=== PATIENT | male | born 2000 | race African-American/Black ===

== ENCOUNTER 2025-01-18 16:49 | Emergency (ER) | payer BC, SELFPAY ==
[2025-01-18 16:56] VITALS: BP 147/80; PULSE 107; RESP 18; TEMP 36.5; O2SAT 100
[2025-01-18 17:33] VITALS: BP 145/80
--- NOTE | 2025-01-18 17:37 | ED_ITS ---
HPI - General Adult General Chief complaint: Recheck/Abnormal Lab/Rx Stated complaint: elevated blood pressure and dizziness Time Seen by Provider: 01/18/25 16:58 History of Present Illness HPI narrative: 24-year-old male presenting with concerns for high blood pressure reading while at [facility]. Patient reports the reading was around 126/80. Denies any family history of early cardiac or any cardiac history in his family. Denies chest pain/shortness of breath, fevers/chills, abdominal pain, nausea/vomiting/diarrhea, headaches. Related Data Allergies Allergy/AdvReac Type Severity Reaction Status Date / Time No Known Allergies Allergy Verified 01/18/25 16:51 Review of Systems Review of Systems: All systems reviewed & are unremarkable except as noted in HPI and below Exam Narrative: GENERAL: Mildly anxious. HEAD: Normocephalic, atraumatic. EYES: PERRLA and EOMI. ENT: Nares clear, no rhinorrhea or epistaxis. Mucous membranes moist. Oropharynx without tonsillar hypertrophy exudate or other lesions. Bilateral TMs pearly frank non-bulging NECK: Supple. No adenopathy or masses. No carotid bruits or JVD CHEST: Clear to auscultation. No respiratory distress. No wheezes rales or rhonchi HEART: Mildly tachycardic and normal rhythm. No murmur heard. Normal peripheral pulses. ABDOMEN: Soft, nontender, nondistended, normal active bowel sounds. EXTREMITIES: Normal range of motion. No edema. SKIN: Warm, dry, no rash. NEURO: No focal deficits. Alert and oriented x3. PSYCH: Normal mood and affect Course Vital Signs Vital signs: Vital Signs Temperature 97.7 F 01/18/25 16:56 Pulse Rate 107 H 01/18/25 16:56 Respiratory Rate 18 01/18/25 16:56 Blood Pressure 147/80 H 01/18/25 16:56 Pulse Oximetry 100 01/18/25 16:56 Oxygen Delivery Room Air 01/18/25 16:56 Temperature 97.7 F 01/18/25 16:56 Pulse Rate 107 H 01/18/25 16:56 Respiratory Rate 18 01/18/25 16:56 Blood Pressure 145/80 H 01/18/25 17:33 Pulse Oximetry 100 01/18/25 16:56 Oxygen Delivery Room Air 01/18/25 16:56 Medical Decision Making [facility] Narrative Medical decision making narrative: 24-year-old male presenting with concerns for high blood pressure reading while at [facility]. Patient reports the reading was around 126/80. Denies any family history of early cardiac or any cardiac history in his family. Denies chest pain/shortness of breath, fevers/chills, abdominal pain, nausea/vomiting/diarrhea, headaches. Patient is mildly tachycardic upon my initial assessment, remains otherwise asymptomatic. No signs hypertensive urgency/emergency. Elevation likely situational or due to anxiety. No acute intervention indicated. Patient's heart rate began to decrease after discussion and reassurance. Advise outpatient monitoring and follow-up with PCP. Given reasons to return. Medical Records Medical records reviewed: Yes I reviewed the external patient's medical records. Vital Signs Vital Signs: Vital Signs Temperature 97.7 F 01/18/25 16:56 Pulse Rate 107 H 01/18/25 16:56 Respiratory Rate 18 01/18/25 16:56 Blood Pressure 147/80 H 01/18/25 16:56 Pulse Oximetry 100 01/18/25 16:56 Oxygen Delivery Room Air 01/18/25 16:56 Temperature 97.7 F 01/18/25 16:56 Pulse Rate 107 H 01/18/25 16:56 Respiratory Rate 18 01/18/25 16:56 Blood Pressure 145/80 H 01/18/25 17:33 Pulse Oximetry 100 01/18/25 16:56 Oxygen Delivery Room Air 01/18/25 16:56 Discharge Plan Discharge Clinical Impression: Elevated blood pressure reading, Anxiety Patient Disposition: Home Condition: Stable Instructions: Hypertension (ED) Additional Instructions: Return to the emergency department if you experience fever, chest pain, shortness of breath, abdominal pain with nausea and vomiting, weakness, numbness/tingling, or any other symptoms that are concerning to you. Take anti- inflammatories (Aleve, Ibuprofen, Naproxen, etc) or Tylenol as needed for pain. Follow up with primary care doctor. Phone number provided. Patient Language: Qatari Follow-up/Referrals: Betty Bee DO [Physician, Family Practice] PHYSICIAN,[employer] [Primary Care Provider, Internal Medicine]
== END 2025-01-18 18:32 | disposition home or self-care (01) ==
DX: R03.0 Elevated blood-pressure reading, without diagnosis of hypertension (principal); F41.9 Anxiety disorder, unspecified
CPT/HCPCS: 82948; 99282

== ENCOUNTER 2025-01-19 19:43 | Emergency (ER) | payer BC, SELFPAY ==
--- NOTE | ~2025-01-19 | XR_ITS ---
Examination: XR chest 1V portable Clinical History: SOB Comparison: None Technique: Portable AP Findings: Heart size normal. Lungs clear. No acute bony abnormality. IMPRESSION: 1. No acute cardiopulmonary findings given portable technique. Reviewed, dictated and finalized at location R. TEACHER
--- OUTSIDE RECORDS SUMMARY | 2025-01-19 16:16 | XMS_ITS | Encounter Summary ---
Author Organization [facility] Address [address] [place] [address] Care Team Providers Care Data Specialist Name Role Phone None, Provider Primary Care Provider Unavaila ble Reason for Visit * Reason Comments Shortness Of Breath Encounter Details Date Type Department Care Team (Late st Contact Info) Description 01/19/2025 4:16 PM FIELD CASHIER - 01/19/2025 5:39 PM FIELD CASHIER Emergency [facility] [place] [address] Emily Rey, MATERIALS ENGINEERING TECHNICIAN [address] [place], [place] [address] Shortness Of Breath Discharge Disposition: Home or Self Care (Routine Discharge) Social History Tobacco Use Types Packs/Day Years Used Date Smoking Tobacco: Never Smokeless Tobacco: Never Alcohol Use Standard Drinks/Week Comments No 0 (1 standard drink = 0.6 oz pur e alcohol) Sex and Gender Information Value Date Recorded Sex Assigned at Male 01/19/2025 3:57 PM FIELD CASHIER Legal Sex Male 4:03 PM CDT Gender Identity Not on file Sexual Orientation Not on file documented as of this encounter Last Filed Vital Signs Vital Sign Reading Time Taken Comments Blood Pressure 116/77 01/19/2025 5:35 PM FIELD CASHIER Pulse 96 01/19/2025 5:35 PM FIELD CASHIER Temperature 36.7 C (98.1 F) 01/19/2025 3:57 PM FIELD CASHIER Respiratory Rate 20 01/19/2025 5:35 PM FIELD CASHIER Oxygen Saturation 100% 01/19/2025 5:35 PM FIELD CASHIER Inhaled Oxygen Concentration - - Weight 80.8 kg (178 lb 2.1 oz) 01/19/2025 3:57 P M FIELD CASHIER Height 182.9 cm (6') 01/19/2025 3:57 PM FIELD CASHIER Body Mass Index 24.16 01/19/2025 3:57 PM FIELD CASHIER documented in this encounter Functional Status * Calculated C-SSRS Risk Score (Lifetime/Recent) Answer Date of Assessment Author Status No Risk Indicated 01/19/2025 4:00 PM FIELD CASHIER Ad Brizuela RN Active * [place] Suicide Severity Rating Scale (Screener/Recent Self-Report) Question Answer Date of Assessment Author Status 1. Wish to be (Past 1 Month) No 01/19/2025 4:00 PM FIELD CASHIER Janine Brizuela RN Active 2. Non-Specific Active Suicidal Thoughts (Past 1 Month) No 01/19/2025 4:00 PM FIELD CASHIER Janine Brizuela RN Active 6. Suicidal Behavior (Lifetime) No 01/19/2025 4:00 PM FIELD CASHIER Janine Brizuela RN Active documented as of this encounter Discharge Instructions * Discharge Instructions* Emily Rey, MATERIALS ENGINEERING TECHNICIAN - 01/19/2025 5:32 PM FIELD CASHIER Emergency Departments (ED) provide medical screening exams and initial stabilizing treatment of emergency medical conditions. Medicine is an inexact science and many conditions cannot be diagnosed orcompletely treated during a single ED visit. Your treating healthcare provider(s) today feel your condition has been stabilized so further care as an outpatient is reasonable. Emergency care does notsubstitute for complete, ongoing, or follow-up care by your primary care physician or wallpaper consultant. Your medication list was reviewed prior to treatment, and at discharge, by the treating provider for the purpose of this outpatient visit only. Please review this entire medication list with your pharmacist, primary care physician, and specialist(s). It is your responsibility to share any new medication instructions you received this visit with your doctor(s). Although no medicine is without risk, your healthcare provider today feels reasonable decisions were made concerning starting new medications and stopping or changing the dosages of your usual medications until you receive follow-up care. Take medications only as directed. Many medications can cause drowsiness, especially those for pain, anxiety, muscle spasms, nausea, and allergies. DO NOT drive, drink alcohol, operate power machinery, or participate in potentially dangerous activities if taking medicines that make you tired. Chronic pain is best managed by pain specialists or primary care physicians, so narcotic refills are not routinely dispensed in the ED. DO NOT take multiple medications containing acetaminophen (Tylenol), such as many narcotic drug combinations and [id number] cold medicines. Your feedback is important to us. Please fill out the survey you will get in the mail. We need yourinput to give you the best care possible! With your feedback we??ll know where we need to focus ourefforts to provide very good service to our patients! CLARKE Taylor [employer] D CASHIER * Attachments The following attachments cannot be sent through Care Everywhere. * Chest Pain That Is Not Caused by the Heart Discharge Instructions ([place]) * Avoiding asthma and allergy triggers ([place]) * Asthma in adults ([place]) documented in this encounter Medications at Time of Discharge albuterol sulfate HFA 108 (90 Base) MCG/ACT inhaler Inhale 2 puffs into the lungs every 6 (six) hours as needed. 18 g 01/19/2025 5 predniSONE (DELTASONE) 20 MG tablet Take 2 tablets (40 mg total) by mouth daily for 5 days. 10 tablet 01/19/2025 5 ondansetron (ZOFRAN-ODT) 4 MG disintegrating tablet Take 1 tablet (4 mg total) by mouth every 8 (eight) hours as needed for Nausea. 20 tablet 09/14/2021 traMADol (ULTRAM) 50 MG tabletIndications:Ac lenny Pain < 3 Day Supply Take 1 tablet (50 mg total) by mouth every 6 (six) hours as needed for Pain. Indications: Acute Pain < 3 Day Supply 10 tablet 01/07/2022 documented as of this encounter ED Notes * Alma Rosa Putnam RN - 01/19/2025 5:39 PM CST Provider discussed today's findings with the patient/family. The patient has been given informationregarding their treatment, follow up and concerning symptoms for which they should seek urgent or emergent attention. I have expressed the the importance of seeking attention should there be any new,or worsening symptoms or persistence of their condition. Patient verbalized understanding of the discharge instructions. D CASHIER * Emily Rey APRN - 01/19/2025 3:59 PM CST ED NOTE Chief Complaint Chief Complaint Patient presents with Shortness Of Breath History of Present Illness Patient arrives to emergency room today for evaluation of shortness of breath and left-sided pain with respirations. Says that he is concerned he may have pneumonia. Reports some fevers and chills and bodyaches. Denies nausea, vomiting, diarrhea, abdominal pain, chest pain, difficulty breathing. Denies any significant medical history. Denies tobacco use, hormone therapy, or long trips. Denies anyknown ill contacts. Medical History ALLERGIES: Review of patient's allergies indicates: No Known Allergies MEDICATIONS: Prior to Admission medications Medication Sig Start Date End Date Taking? Authorizing Provider albuterol sulfate HFA 108 (90 Base) MCG/ACT inhaler Inhale 2 puffs into the lungs every 6 (six) hours as needed. 01/19/25 01/26/25 Yes Emily Rey APRN predniSONE (DELTASONE) 20 MG tablet Take 2 tablets (40 mg total) by mouth daily for 5 days. 01/19/25 01/24/25 Yes Emily Rey APRN ondansetron (ZOFRAN-ODT) 4 MG disintegrating tablet Take 1 tablet (4 mg total) by mouth every 8 (eight) hours as needed for Nausea. 09/14/21 Josue Duke, traMADol (ULTRAM) 50 MG tablet Take 1 tablet (50 mg total) by mouth every 6 (six) hours as needed for Pain. Indications: Acute Pain < 3 Day Supply 01/07/22 MARYAN Mast PAST MEDICAL HISTORY: History reviewed. No pertinent past medical history. PAST SURGICAL HISTORY: History reviewed. No pertinent surgical history. FAMILY HISTORY: Family History Problem Relation Name Age of Onset No Known Problems Mother No Known Problems Father SOCIAL HISTORY: History Smoking Status Never Smokeless Tobacco Never Social History Substance and Sexual Activity Alcohol Use No Social History Substance and Sexual Activity Drug Use No Physical Exam Filed Vitals: 01/19/25 1557 BP: (!) 163/69 Pulse: (!) 110 Resp: 18 Temp: 98.1 ??F (36.7 ??C) TempSrc: Temporal SpO2: 99% Weight: 80.8 kg (178 lb 2.1 oz) Height: 1.829 m (6') Physical Exam Vitals and nursing note reviewed. Constitutional: General: He is not in acute distress. Appearance: Normal appearance. He is well-developed. He is not ill-appearing or toxic-appearing. Comments: Nontoxic appearing HENT: Head: Normocephalic and atraumatic. Right Ear: Tympanic membrane, ear canal and external ear normal. Left Ear: Tympanic membrane, ear canal and external ear normal. Nose: Congestion and rhinorrhea present. Mouth/Throat: Mouth: Mucous membranes are moist. Pharynx: Oropharynx is clear. No oropharyngeal exudate or posterior oropharyngeal erythema. Eyes: Conjunctiva/sclera: Conjunctivae normal. Cardiovascular: Rate and Rhythm: Normal rate and regular rhythm. Pulses: Normal pulses. Heart sounds: Normal heart sounds. Pulmonary: Effort: Pulmonary effort is normal. No respiratory distress. Breath sounds: Normal breath sounds. No stridor. No wheezing, rhonchi or rales. Chest: Chest wall: No tenderness. Abdominal: General: Bowel sounds are normal. There is no distension. Palpations: Abdomen is soft. Tenderness: There is no abdominal tenderness. There is no guarding. Musculoskeletal: General: Normal range of motion. Cervical back: Normal range of motion and neck supple. No rigidity. Lymphadenopathy: Cervical: No cervical adenopathy. Skin: General: Skin is warm and dry. Capillary Refill: Capillary refill takes less than 2 seconds. Neurological: General: No focal deficit present. Mental Status: He is alert and oriented to person, place, and time. Psychiatric: Mood and Affect: Mood normal. Behavior: Behavior normal. Diagnostic Studies / Procedures ELECTROCARDIOGRAMS: Results for orders placed or performed during the hospital encounter of 01/19/25 ECG 12 lead Result Value Ref Range ECG QT 316 ECG QTC [address] [facility] [address] Hernándezkenneth [address] Test Date: 2025-01-19 Pat Name: HEBER LEWIS Department: 41 Room: [place] Gender: Male Banana Loader: [id number] : 2000 Requested By: EMILY REY Order Number: [id number] Reading MD: Measurements Intervals [place] Rate: 108 P: 86 [place]: 159 QRS: 86 QRSD: 88 T: 56 QT: 316 QTc: 424 Interpretive Statements SINUS TACHYCARDIA POSSIBLE RIGHT ATRIAL ENLARGEMENT [0.25mV P-WAVE] POSSIBLE LEFT ATRIAL ENLARGEMENT [-0.1mV P-WAVE IN V1/V2] NONSPECIFIC T-WAVE ABNORMALITY ABNORMAL RHYTHM ECG No previous ECG available for comparison LABORATORY STUDIES: Results for orders placed or performed during the hospital encounter of 01/19/25 CBC W/DIFF AUTOMATED Result Value Ref Range WBC 5.35 4.5 - 11.0 x10'3/uL RBC 4.86 4.70 - 6.10 x10'6/uL HGB 14.5 14.0 - 18.0 G/DL HCT 40.2 (L) 43.0 - 54.0 % MCV 82.7 80.0 - 94.0 FL MCH 29.8 27.0 - 31.0 PG MCHC 36.1 (H) 32.0 - 36.0 G/DL RDW 12.4 11.5 - 14.5 % PLT 328 130 - 400 x10'3/uL MPV 9.6 9.3 - 12.2 FL DIFFERENTIAL TYPE MANUAL DIFFERENTIAL SEG NEUTROPHILS 55 % LYMPHOCYTES 37 % MONOCYTES 4 % EOSINOPHILS 2 % BASOPHILS 2 % ABS. NEUTROPHILS 2.94 1.80 - 7.70 x10'3/uL ABS. LYMPHOCYTES 1.98 1.00 - 4.80 x10'3/uL ABS. MONOCYTES 0.21 (L) 0.30 - 0.82 x10'3/uL ABS. EOSINOPHILS 0.11 0.04 - 0.54 x10'3/uL ABS. BASOPHILS 0.11 (H) 0.01 - 0.08 x10'3/uL RBC MORPHOLOGY RBC MORPHOLOGY APPEARS NORMAL. SLIDE REVIEWED. PLT EST. ADEQUATE BASIC METABOLIC PANEL Result Value Ref Range GLUCOSE 89 70 - 99 MG/DL BUN 8 7 - 18 MG/DL CREATININE S/P/B 0.92 0.7 - 1.3 MG/DL SODIUM S/P/B 138 136 - 145 MMOL/L POTASSIUM S/P/B 3.7 3.5 - 5.1 MMOL/L CHLORIDE S/P/B 105 97 - 115 MMOL/L CO2 19.7 (L) 21 - 32 MMOL/L CALCIUM S/P/B 10.4 (H) 8.5 - 10.1 MG/DL ANION GAP 13.3 (H) 2 - 10 MMOL/L BUN CREATININE RATIO 8.7 6 - 26 GFR ESTIMATE >90 >90 ML/MIN/1.73 M2 TROPONIN, QUANT Result Value Ref Range TROPONIN I HIGH SENSITIVITY 27 <79 ng/L D-DIMER, QUANTITATIVE Result Value Ref Range D-DIMER 392 0 - 500 ng[FEU]/mL ECG 12 lead Result Value Ref Range ECG QT 316 ECG QTC 424 RESPIRATORY PCR PNL LIMITED (FLU A/FLU B/RSV/COVID) Specimen: NASOPHARYNX; SWAB Result Value Ref Range SPEC DESCRIPTION NASOPHARYNGEAL SWAB CORONAVIRUS SARS COV 2 PCR (RESP) NEGATIVE NEGATIVE INFLUENZA A PCR (RESP) NEGATIVE NEGATIVE INFLUENZA B PCR (RESP) NEGATIVE NEGATIVE RSV PCR (RESP) NEGATIVE NEGATIVE IMAGING STUDIES XR CHEST PA+LAT Preliminary Result by User, [id number] (01/19 1700) [address] [address] EXAMINATION: PA AND LATERAL CHEST Exam date/time: 01/19/2025 4:29 PM Reason For Exam: Shortness of breath Comparison: Chest x-ray 05/31/2017 Technique: PA and lateral views of the chest were obtained. Findings: The cardiomediastinal silhouette is within normal limits. Pulmonary vasculature is normal. No pulmonary consolidation, pleural effusion or pneumothorax. =====IMPRESSION:===== No acute cardiopulmonary finding. Preliminary: Paty Gamez, 01/19/2025 5:00 PM ED Course / Medical Decision Making MDM Number of Diagnoses or Management Options Acute cough Chest pain on breathing Mild intermittent reactive airway disease with acute exacerbation (HHS/HCC) Diagnosis management comments: Based on assessment and history and patient most suspicious for a viral illness. However, with his complaints of chest pain we will also to exclude ACS through laboratory testing and chest x-ray. Patient also has a concern for pneumonia which will be excluded with chest x-ray and laboratory testing. Will test patient for respiratory viruses. Patient is unable to PERC out due to heart rate, but would like additional reassurance and will perform D-dimer for evaluation of pulmonary embolus given patient's vague response to symptoms during questioning. Without any prior history lower suspicion for an exacerbation of underlying condition. However, if patient does not see a primary doctor on regular basis hemodynamically that he has these conditions. Reassuring diagnostic evaluation today. With no signs of pulmonary embolus, pneumonia, severe infection, viral illness, metabolic derangement, hypoxia. Based on his negative workup still suspect may be an underlying respiratory condition that is exacerbated and will likely cover with steroids and albuterol inhaler and encourage patient for follow-up. Patient was involved in shared decision making. And agreeable to this plan. Verbalized understanding of discharge instructions also verbalized understanding of testing that was performed today. Patient is agreeable to returning to emergency room if his condition worsens at all. Also agreeable to establishing with a primary care provider for further evaluation. Respirations easy skin within normal limits patient ambulatory steady gait and stable for discharge. Amount and/or Complexity of Data Reviewed Clinical lab tests: reviewed Tests in the radiology section of CPT??: reviewed Tests in the medicine section of CPT??: reviewed ED Course as of 01/19/25 1739 Sat Jan 19, 20251713 D-DIMER: 392 [DC] 1714 XR CHEST PA+LAT Per rad- =====IMPRESSION:===== No acute cardiopulmonary finding. [DC] 1714 CBC W/DIFF AUTOMATED(!) Relatively normal CBC no signs of severe infection or anemia. [DC] 1715 RESPIRATORY PCR PNL LIMITED (FLU A/FLU B/RSV/COVID) Negative for flu, RSV, COVID [DC] ED Course User Index [DC] Emily Rey APRN Medications - No data to display Clinical Impression Mild intermittent reactive airway disease with acute exacerbation (HHS/HCC) (Primary) Acute cough Chest pain on breathing Current Discharge Medication List START taking these medications Details albuterol sulfate HFA 108 (90 Base) MCG/ACT inhaler Inhale 2 puffs into the lungs every 6 (six) hours as needed. Qty: 18 g, Refills: 0 Class: Eprescribe [id number] [address] [facility] (Ph #: [phone]) predniSONE (DELTASONE) 20 MG tablet Take 2 tablets (40 mg total) by mouth daily for 5 days. Qty: 10 tablet, Refills: 0 Class: Eprescribe [id number] [place], [place] - [address] [facility] (Ph #: [phone]) Disposition: Discharge Follow-Up: [address] [facility], [address] Call Contact the number above to schedule an appointment to establish care with a primary care provider EMILY REY APRN 01/19/2025 Emily Rey APRN 01/19/25 173 Emily Rey APRN 01/19/25 1732 Cosigned by Tyrone Zamora MD at 01/19/2025 6:21 PM FIELD CASHIER D CASHIER D CASHIER D CASHIER * Janine Brizuela RN - 01/19/2025 3:58 PM CSTSummary: TRIAGE Pt presents to ED from home for SOB x 1 week. Pt reports difficulty taking a deep breath, along with pain in left rib cage area. Pt concerned he may have pneumonia. A&Ox4. D CASHIER D CASHIER D CASHIER * Nurse Neema Geomagnetist I - 01/19/2025 3:54 PM CST Patient in rest room at this time. D CASHIER documented in this encounter Plan of Treatment Pending Results Name Type Priority Associated Diagnoses Date /Time ECG 12 lead EKG-NonRad Routine 01/19/2025 4: 30 PM FIELD CASHIER XR CHEST PA+LAT Imaging STAT 4:39 PM FIELD CASHIER documented as of this encounter Procedures Procedure Name Priority Date/Time Associated Diagnosis Comments XR CHEST PA+LAT STAT 01/19/2025 4:39 PM FIELD CASHIER Procedure Note - Lisa Santiago MD / Paty Gamez MD - 01/19/2025 4:39 PM CSTThis note is in progress. [address] [address] EXAMINATION: PA AND LATERAL CHEST Exam date/time: 01/19/2025 4:29 PM Reason For Exam: Shortness of breath Comparison: Chest x-ray 05/31/2017 Technique: PA and lateral views of the chest were obtained. Findings: The cardiomediastinal silhouette is within normal limits.Pulmonary vasculature is normal. No pulmonary consolidation, pleuraleffusion or pneumothorax. =====IMPRESSION:===== No acute cardiopulmonary finding. Preliminary: Paty Gamez, DO01/19/2025 5:00 PM ECG 12-LEAD Routine 01/19/2025 4:30 PM FIELD CASHIER Procedure Note - 01/19/2025 4:30 PM CSTThis note is in progress. [address] Test Date: 2025-01-19 Pat Name: HEBER LEWIS Department: 41 Room: [place] Gender: Male Banana Loader: [id number] : 2000 Requested By: EMILY REY Order Number: [id number] Reading MD: Measurements Intervals [place] Rate: 108 P: 86 [place]: 159 QRS: 86 QRSD: 88 T: 56 QT: 316 QTc: 424 Interpretive Statements SINUS TACHYCARDIA POSSIBLE RIGHT ATRIAL ENLARGEMENT [0.25mV P-WAVE] POSSIBLE LEFT ATRIAL ENLARGEMENT [-0.1mV P-WAVE IN V1/V2] NONSPECIFIC T-WAVE ABNORMALITY ABNORMAL RHYTHM ECG No previous ECG available for comparison TROPONIN, QUANT STAT 01/19/2025 4:25 PM FIELD CASHIER D-DIMER, QUANTITATIVE STAT 01/19/2025 4:25 PM FIELD CASHIER CBC W/DIFF STAT 01/19/2025 4:25 PM FIELD CASHIER BASIC METABOLIC PANEL STAT 01/19/2025 4:25 PM FIELD CASHIER RESPIRATORY PCR PNL LIMITED STAT 01/19/2025 4:25 PM FIELD CASHIER documented in this encounter Results * D-DIMER, QUANTITATIVE (01/19/2025 4:25 PM FIELD CASHIER) [facility] D-DIMER 392 0 - 500 ng{FEU}/mL 01/19/2025 5:09 PM FIELD CASHIER [facility] Comment: D-Dimer values less than or equal to 500 ng/mL FEU have a negative predictive value of >95% for exclusion of deep vein thrombosis and pulmonary embolism. In patients over 50 (who tend to have higher normal baseline D-Dimer values), recent studies suggest age-adjusted D-Dimer cutoff values (calculated as: age [years] x 10 ng/mL) result in equivalent outcomes and no additional false negative findings. BLOOD VENOUS BLOOD SPECIMEN / Unknown 01/19/2025 4:25 PM FIELD CASHIER Emily Rey APRN LABORATORY Final Result [facility] [address] [place] [address], [place] [phone] * TROPONIN, QUANT (01/19/2025 4:25 PM FIELD CASHIER) [facility] TROPONIN I HIGH SENSITIVITY 27 <79 ng/L 01/19/2025 4:57 PM FIELD CASHIER [facility] Comment: HIGH DOSES OF BIOTIN, TROPONIN-SPECIFIC AUTOANTIBODIES, AND ANTIBODY THERAPY CONTAINING HAMA MAY INTERFERE WITH THIS TEST RESULT. CORRELATION TO CLINICAL HISTORY AND PRESENTATION RECOMMENDED. BLOOD VENOUS BLOOD SPECIMEN / Unknown 01/19/2025 4:25 PM FIELD CASHIER Emily Rey APRN LABORATORY Final Result [facility] [address] [place] [address], * (ABNORMAL) BASIC METABOLIC PANEL (01/19/2025 4:25 PM FIELD CASHIER) GLUCOSE 89 70 - 99 MG/DL 01/19/2025 4:57 PM FIELD CASHIER [facility] BUN 8 7 - 18 MG/DL 01/19/2025 4:57 PM FIELD CASHIER [facility] CREATININE S/P/B 0.92 0.7 - 1.3 MG/DL 01/19/2025 4:57 PM FIELD CASHIER [facility] SODIUM S/P/B 138 136 - 145 MMOL/L 01/19/2025 4:57 PM FIELD CASHIER [facility] POTASSIUM S/P/B 3.7 3.5 - 5.1 MMOL/L 01/19/2025 4:57 PM FIELD CASHIER [facility] CHLORIDE S/P/B 105 97 - 115 MMOL/L 01/19/2025 4:57 PM FIELD CASHIER [facility] CO2 19.7(L) 21 - 32 MMOL/L 01/19/2025 4:57 PM FIELD CASHIER [facility] CALCIUM S/P/B 10.4(H) 8.5 - 10.1 MG/DL 01/19/2025 4:57 PM FIELD CASHIER [facility] ANION GAP 13.3(H) 2 - 10 MMOL/L 01/19/2025 4:57 PM FIELD CASHIER [facility] BUN CREATININE RATIO 8.7 6 - 26 01/19/2025 4:57 PM FIELD CASHIER [facility] GFR ESTIMATE >90 >90 ML/MIN/1.7 3 M2 01/19/2025 4:57 PM FIELD CASHIER [facility] Comment: NOTE: eGFR is not calculated for patients <18 years of age or gender unknown. This is an estimated GFR calculation using the new CKD EPI creatinine equation without race and so does not require a correction factor for race. This estimated GFR should not be used for calculating drug doses. BLOOD VENOUS BLOOD SPECIMEN / Unknown 01/19/2025 4:25 PM FIELD CASHIER Emily Rey APRN LABORATORY Final Result [facility] [address] [place] [address], * (ABNORMAL) CBC W/DIFF AUTOMATED (01/19/2025 4:25 PM FIELD CASHIER) WBC 5.35 4.5 - 11.0 x10'3/uL 01/19/2025 4:42 PM FIELD CASHIER [facility] RBC 4.86 4.70 - 6.10 x10'6/uL 01/19/2025 4:42 PM [facility] HGB 14.5 14.0 - 18.0 G/DL 01/19/2025 4:42 PM FIELD CASHIER [facility] HCT 40.2(L) 43.0 - 54.0 % 01/19/2025 4:42 PM FIELD CASHIER [facility] MCV 82.7 80.0 - 94.0 FL 01/19/2025 4:42 PM [facility] MCH 29.8 27.0 - 31.0 PG 01/19/2025 4:42 PM FIELD CASHIER [facility] MCHC 36.1(H) 32.0 - 36.0 G/DL 01/19/2025 4:42 PM [facility] RDW 12.4 11.5 - 14.5 % 01/19/2025 4:42 PM [facility] PLT 328 130 - 400 x10'3/uL 01/19/2025 4:42 PM [facility] MPV 9.6 9.3 - 12.2 FL 01/19/2025 4:42 PM [facility] DIFFERENTIAL TYPE MANUAL DIFFERENTIAL 01/19/2025 5:09 PM [facility] SEG NEUTROPHILS 55 % 5:09 PM [facility] LYMPHOCYTES 37 % 01/19/2025 5:09 PM [facility] MONOCYTES 4 % 01/19/2025 5:09 PM [facility] EOSINOPHILS 2 % 01/19/2025 5:09 PM [facility] BASOPHILS 2 % 01/19/2025 5:09 PM [facility] ABS. NEUTROPHILS 2.94 1.80 - 7.70 x10'3/uL 01/19/2025 5:09 PM [facility] ABS. LYMPHOCYTES 1.98 1.00 - 4.80 x10'3/uL 01/19/2025 5:09 PM [facility] ABS. MONOCYTES 0.21(L) 0.30 - 0.82 x10'3/uL 01/19/2025 5:09 PM [facility] ABS. EOSINOPHILS 0.11 0.04 - 0.54 x10'3/uL 01/19/2025 5:09 PM [facility] ABS. BASOPHILS 0.11(H) 0.01 - 0.08 x10'3/uL 01/19/2025 5:09 PM FIELD CASHIER [facility] RBC MORPHOLOGY RBC MORPHOLOGY APPEARS NORMAL. SLIDE REVIEWED. 01/19/2025 5:09 PM FIELD CASHIER [facility] PLT EST. ADEQUATE 01/19/2025 5:09 PM FIELD CASHIER [facility] BLOOD VENOUS BLOOD SPECIMEN / Unknown 01/19/2025 4:25 PM FIELD CASHIER Emily Rey APRN LABORATORY Final Result [facility] [address] [place] [address], [place] [phone] * RESPIRATORY PCR PNL LIMITED (FLU A/FLU B/RSV/COVID) (01/19/2025 4:25 PM FIELD CASHIER) SPEC DESCRIPTION NASOPHARYNGEAL SWAB 01/19/2025 4:24 PM FIELD CASHIER [facility] CORONAVIRUS SARS COV 2 PCR (RESP) NEGATIVE NEGATIVE 01/19/2025 5:15 PM FIELD CASHIER [facility] INFLUENZA A PCR (RESP) NEGATIVE NEGATIVE 01/19/2025 5:15 PM FIELD CASHIER [facility] INFLUENZA B PCR (RESP) NEGATIVE NEGATIVE 01/19/2025 5:15 PM FIELD CASHIER [facility] RSV PCR (RESP) NEGATIVE NEGATIVE 01/19/2025 5:15 PM FIELD CASHIER [facility] SWAB NASOPHARYNGEAL STRUCTURE / Unknown 01/19/2025 4:25 PM FIELD CASHIER Emily Rey APRN MICROBIOLOGY - GENERAL ORDER RAMON Final Result [facility] [address] [place] [address], [place] [phone] documented in this encounter Visit Diagnoses Diagnosis Mild intermittent reactive airway disease with acute exacerbation (HHS/HCC)- Primary Acute cough Chest pain on breathing Painful respiration documented in this encounter Additional Health Concerns Infection Onset Date Last Indicated Resolved Time Respiratory Rule Out 01/19/2025 01/19/2025 025 5:15 PM FIELD CASHIER documented as of this encounter Care Teams Data Specialist Relationship Specialty Start Date End Date None, Provider, PCP - General 08/26/21 documented as of this encounter
[2025-01-19 19:46] VITALS: BP 149/76; PULSE 92; RESP 20; TEMP 36.3; O2SAT 100
--- OUTSIDE RECORDS SUMMARY | 2025-01-19 19:46 | XMS_ITS | Encounter Summary ---
Author Organization [facility] Address [address] [place] [address] Care Team Providers Care Costume Director Name Role Phone None, Provider Primary Care Provider Anais arteaga Encounter Details Date Type Department Care Team (Latest Contact Info) Description 01/19/2025 Travel Social History Tobacco Use Types Packs/Day Years Used Date Smoking Tobacco: Never Smokeless Tobacco: Never Alcohol Use Standard Drinks/Week Comments No 0 (1 standard drink = 0.6 oz pur e alcohol) Sex and Gender Information Value Date Recorded Sex Assigned at Male 01/19/2025 3:57 PM SERVICE MECHANIC Legal Sex Male 4:03 PM CDT Gender Identity Not on file Sexual Orientation Not on file documented as of this encounter Functional Status * Calculated C-SSRS Risk Score (Lifetime/Recent) Answer Date of Assessment Author Status No Risk Indicated 01/19/2025 4:00 PM Ad Mckenzie RN Active * Mitchell Suicide Severity Rating Scale (Screener/Recent Self-Report) Question Answer Date of Assessment Author Status 1. Wish to be (Past 1 Month) No 01/19/2025 4:00 PM Janine Mckenzie RN Active 2. Non-Specific Active Suicidal Thoughts (Past 1 Month) No 01/19/2025 4:00 PM Janine Mckenzie RN Active 6. Suicidal Behavior (Lifetime) No 01/19/2025 4:00 PM Janine Mckenzie RN Active documented as of this encounter Plan of Treatment Not on file documented as of this encounter Visit Diagnoses Not on filedocumented in this encounter Additional Health Concerns Infection Onset Date Last Indicated Resolved Time Respiratory Rule Out 01/19/2025 01/19/2025 025 5:15 PM SERVICE MECHANIC documented as of this encounter Care Teams Costume Director Relationship Specialty Start Date End Date None, Provider, PCP - General 08/26/21 documented as of this encounter
--- OUTSIDE RECORDS SUMMARY | 2025-01-19 19:46 | XMS_ITS | Clinical Summary ---
Author Organization [facility] Address [address] [place] [address] Care Team Providers Care Environmental Service Aide Name Role Phone None, Provider MD Primary Care Provider Unavaila ble Allergies No known active allergies Medications ondansetron (ZOFRAN-ODT) 4 MG disintegrating tablet Take 1 tablet (4 mg total) by mouth every 8 (eight) hours as needed for Nausea. 20 tablet 2 Active traMADol (ULTRAM) 50 MG tabletIndications:A cute Pain < 3 Day Supply Take 1 tablet (50 mg total) by mouth every 6 (six) hours as needed for Pain. Indications: Acute Pain < 3 Day Supply 10 tablet 2 Active predniSONE (DELTASONE) 20 MG tablet Take 2 tablets (40 mg total) by mouth daily for 5 days. 10 tablet 5 01/25/20 25 Active albuterol sulfate HFA 108 (90 Base) MCG/ACT inhaler Inhale 2 puffs into the lungs every 6 (six) hours as needed. 18 g 5 01/27/20 25 Active Active Problems No known active problems Encounters Date Type Department Care Team Description 01/19/2025 4:16 PM BUTT WELDER - 01/19/2025 5:39 PM BUTT WELDER Emergency [facility] [place] [address] Emily Rey APRN Shortness Of Breath Discharge Disposition: Home or Self Care (Routine Discharge) 01/19/2025 Travel from Last 3 Months Family History Medical History Relation Comments No Known Problems Father No Known Problems Mother Relation Status Comments Father Alive Mother Alive Social History Tobacco Use Types Packs/Day Years Used Date Smoking Tobacco: Never Smokeless Tobacco: Never Alcohol Use Standard Drinks/Week Comments No 0 (1 standard drink = 0.6 oz pur e alcohol) Sex and Gender Information Value Date Recorded Sex Assigned at Male 01/19/2025 3:57 PM BUTT WELDER Legal Sex Male 4:03 PM CDT Gender Identity Not on file Sexual Orientation Not on file Last Filed Vital Signs Vital Sign Reading Time Taken Comments Blood Pressure 116/77 01/19/2025 5:35 PM BUTT WELDER Pulse 96 01/19/2025 5:35 PM BUTT WELDER Temperature 36.7 C (98.1 F) 01/19/2025 3:57 PM BUTT WELDER Respiratory Rate 20 01/19/2025 5:35 PM BUTT WELDER Oxygen Saturation 100% 01/19/2025 5:35 PM BUTT WELDER Inhaled Oxygen Concentration - - Weight 80.8 kg (178 lb 2.1 oz) 01/19/2025 3:57 P M BUTT WELDER Height 182.9 cm (6') 01/19/2025 3:57 PM BUTT WELDER Body Mass Index 24.16 01/19/2025 3:57 PM BUTT WELDER Plan of Treatment Health Maintenance Due Date Last Done Comments Annual Physical 07/14/2002 HPV Vaccines (1 - Male 3-dos e series) 07/14/2014 Hepatitis C 07/14/2017 DTaP, Tdap and Td Vaccines ( 1 - Tdap) 07/14/2018 Hepatitis B Vaccines (1 of 3 - 19+ 3-dose series) 07/14/2018 Pneumococcal Vaccine: Pediat rics (0 to 5 Years) and At-Risk Patients (6 to 49 Years) (1 of 2 - PCV) 07/14/2018 COVID-19 Vaccine (2024-2 6 season) 2024 Influenza Adult (#1) 2024 Hepatitis A Vaccines Aged Out No long er eligible based on patient's age to complete this topic Meningococcal B Vaccine Aged Out No l onger eligible based on patient's age to complete this topic Meningococcal Vaccine Aged Out No zuleyma shira eligible based on patient's age to complete this topic RSV Immunizations Under 20 Months Aged Out No longer eligible based on patient's age to complete this topic Procedures Procedure Name Priority Date/Time Associated Diagnosis Comments XR CHEST PA+LAT STAT 01/19/2025 4:39 PM BUTT WELDER Procedure Note - Lisa Santiago MD / Paty Gamez MD - 01/19/2025 4:39 PM CSTThis note is in progress. [address] [address] EXAMINATION: PA AND LATERAL CHEST Exam date/time: [...] PM ECG 12-LEAD Routine 01/19/2025 4:30 PM BUTT WELDER Procedure Note - 01/19/2025 4:30 PM CSTThis note is in progress. [address] Test Date: 2025-01-19 Pat Name: JOHN SAN Department: 41 Room: INMN Gender: Male Supervisor Mails: [id number] : 2000 Requested By: EMILY REY Order Number: [id number] Reading MD: Measurements Intervals Perrin Rate: 108 P: 86 MN: 159 QRS: 86 QRSD: 88 T: 56 QT: 316 QTc: 424 Interpretive Statements SINUS TACHYCARDIA POSSIBLE RIGHT ATRIAL ENLARGEMENT [0.25mV P-WAVE] POSSIBLE LEFT ATRIAL ENLARGEMENT [-0.1mV P-WAVE IN V1/V2] NONSPECIFIC T-WAVE ABNORMALITY ABNORMAL RHYTHM ECG No previous ECG available for comparison RESPIRATORY PCR PNL LIMITED STAT 01/19/2025 4:25 PM BUTT WELDER D-DIMER, QUANTITATIVE STAT 01/19/2025 4:25 PM BUTT WELDER TROPONIN, QUANT STAT 01/19/2025 4:25 PM BUTT WELDER BASIC METABOLIC PANEL STAT 01/19/2025 4:25 PM BUTT WELDER CBC W/DIFF STAT 01/19/2025 4:25 PM BUTT WELDER from Last 3 Months Results * TROPONIN, QUANT (01/19/2025 4:25 PM BUTT WELDER) Pathologist [facility] TROPONIN I HIGH SENSITIVITY 27 <79 ng/L 01/19/2025 4:57 PM BUTT WELDER [facility] Comment: HIGH DOSES OF BIOTIN, TROPONIN-SPECIFIC AUTOANTIBODIES, AND ANTIBODY THERAPY CONTAINING HAMA MAY INTERFERE WITH THIS TEST RESULT. CORRELATION TO CLINICAL HISTORY AND PRESENTATION RECOMMENDED. BLOOD VENOUS BLOOD SPECIMEN / Unknown 01/19/2025 4:25 PM BUTT WELDER Emily Rey APRN LABORATORY Final Result [facility] [address] [place] [id number], * D-DIMER, QUANTITATIVE (01/19/2025 4:25 PM BUTT WELDER) [facility] D-DIMER 392 0 - 500 ng{FEU}/mL 01/19/2025 5:09 PM BUTT WELDER [facility] Comment: D-Dimer values less than or [...] BLOOD SPECIMEN / Unknown 01/19/2025 4:25 PM BUTT WELDER Emily Rey APRN LABORATORY Final Result [facility] [address] [place] [address], * (ABNORMAL) CBC W/DIFF AUTOMATED (01/19/2025 4:25 PM BUTT WELDER) WBC 5.35 4.5 - 11.0 x10'3/uL 01/19/2025 4:42 PM BUTT WELDER [facility] RBC 4.86 4.70 - 6.10 x10'6/uL 01/19/2025 4:42 PM BUTT WELDER [facility] HGB 14.5 14.0 - 18.0 G/DL 01/19/2025 4:42 PM BUTT WELDER [facility] HCT 40.2(L) 43.0 - 54.0 % 01/19/2025 4:42 PM BUTT WELDER [facility] MCV 82.7 80.0 - 94.0 FL 01/19/2025 4:42 PM BUTT WELDER [facility] MCH 29.8 27.0 - 31.0 PG 01/19/2025 4:42 PM BUTT WELDER [facility] MCHC 36.1(H) 32.0 - 36.0 G/DL 01/19/2025 4:42 PM BUTT WELDER [facility] RDW 12.4 11.5 - 14.5 % 01/19/2025 4:42 PM BUTT WELDER [facility] PLT 328 130 - 400 x10'3/uL 01/19/2025 4:42 PM BUTT WELDER [facility] MPV 9.6 9.3 - 12.2 FL 01/19/2025 4:42 PM BUTT WELDER [facility] DIFFERENTIAL TYPE MANUAL DIFFERENTIAL 01/19/2025 5:09 PM BUTT WELDER [facility] SEG NEUTROPHILS 55 % 5:09 PM BUTT WELDER [facility] LYMPHOCYTES 37 % 01/19/2025 5:09 PM [facility] MONOCYTES 4 % 01/19/2025 5:09 PM BUTT WELDER [facility] EOSINOPHILS 2 % 01/19/2025 5:09 PM BUTT WELDER [facility] BASOPHILS 2 % 01/19/2025 5:09 PM BUTT WELDER [facility] ABS. NEUTROPHILS 2.94 1.80 - 7.70 x10'3/uL 01/19/2025 5:09 PM BUTT WELDER [facility] ABS. LYMPHOCYTES 1.98 1.00 - 4.80 x10'3/uL 01/19/2025 5:09 PM [facility] ABS. MONOCYTES 0.21(L) 0.30 - 0.82 x10'3/uL 01/19/2025 5:09 PM BUTT WELDER [facility] ABS. EOSINOPHILS 0.11 0.04 - 0.54 x10'3/uL 01/19/2025 5:09 PM [facility] ABS. BASOPHILS 0.11(H) 0.01 - 0.08 x10'3/uL 01/19/2025 5:09 PM [facility] RBC MORPHOLOGY RBC MORPHOLOGY APPEARS NORMAL. SLIDE REVIEWED. 01/19/2025 5:09 PM BUTT WELDER [facility] PLT EST. ADEQUATE 01/19/2025 5:09 PM [facility] BLOOD VENOUS BLOOD SPECIMEN / Unknown 01/19/2025 4:25 PM BUTT WELDER us Emily Rey APRN LABORATORY Final Result [facility] [address] [place] [address], * (ABNORMAL) BASIC METABOLIC PANEL (01/19/2025 4:25 PM BUTT WELDER) [facility] GLUCOSE 89 70 - 99 MG/DL 01/19/2025 4:57 PM [facility] BUN 8 7 - 18 MG/DL 01/19/2025 4:57 PM [facility] CREATININE S/P/B 0.92 0.7 - 1.3 MG/DL 01/19/2025 4:57 PM [facility] SODIUM S/P/B 138 136 - 145 MMOL/L 01/19/2025 4:57 PM [facility] POTASSIUM S/P/B 3.7 3.5 - 5.1 MMOL/L 01/19/2025 4:57 PM [facility] CHLORIDE S/P/B 105 97 - 115 MMOL/L 01/19/2025 4:57 PM [facility] CO2 19.7(L) 21 - 32 MMOL/L 01/19/2025 4:57 PM [facility] CALCIUM S/P/B 10.4(H) 8.5 - 10.1 MG/DL 01/19/2025 4:57 PM [facility] ANION GAP 13.3(H) 2 - 10 MMOL/L 01/19/2025 4:57 PM [facility] BUN CREATININE RATIO 8.7 6 - 26 01/19/2025 4:57 PM [facility] GFR ESTIMATE >90 >90 ML/MIN/1.7 3 M2 01/19/2025 4:57 PM [facility] Comment: NOTE: eGFR is not calculated for patients <18 years of age or gender unknown. This is an estimated GFR calculation using the new CKD EPI creatinine equation without race and so does not require a correction factor for race. This estimated GFR should not be used for calculating drug doses. BLOOD VENOUS BLOOD SPECIMEN / Unknown 01/19/2025 4:25 PM BUTT WELDER Emily Rey APRN LABORATORY Final Result [facility] [address] [place] [address], [place] [phone] * RESPIRATORY PCR PNL LIMITED (FLU A/FLU B/RSV/COVID) (01/19/2025 4:25 PM BUTT WELDER) SPEC DESCRIPTION NASOPHARYNGEAL SWAB 01/19/2025 4:24 PM BUTT WELDER [facility] CORONAVIRUS SARS COV 2 PCR (RESP) NEGATIVE NEGATIVE 01/19/2025 5:15 PM BUTT WELDER [facility] INFLUENZA A PCR (RESP) NEGATIVE NEGATIVE 01/19/2025 5:15 PM BUTT WELDER [facility] INFLUENZA B PCR (RESP) NEGATIVE NEGATIVE 01/19/2025 5:15 PM BUTT WELDER [facility] RSV PCR (RESP) NEGATIVE NEGATIVE 01/19/2025 5:15 PM BUTT WELDER [facility] SWAB NASOPHARYNGEAL STRUCTURE / Unknown 01/19/2025 4:25 PM BUTT WELDER Emily Rey APRN MICROBIOLOGY - GENERAL ORDER RAMON Final Result [facility] [address] [place] [address], [place] [phone] from Last 3 Months Insurance [facility] MEDICAID [employer] [place] Care Teams Environmental Service Aide Relationship Specialty Start Date End Date None, Provider, PCP - General 08/26/21
--- NOTE | 2025-01-19 20:25 | ECG_ITS ---
Test Date: 2025-01-19 20:47:51 Measurements Intervals Manquin Rate: 97 P: 85 MD: 171 QRS: 79 QRSD: 93 T: 48 QT: 338 QTc: 430 Interpretive Statements SINUS RHYTHM POSSIBLE LEFT ATRIAL ENLARGEMENT [-0.1mV P-WAVE IN V1/V2] ST ELEVATION CONSISTENT WITH INJURY, PERICARDITIS, OR EARLY REPOLARIZATION [ST ELEVATION W/O NORMALLY INFLECTED T-WAVE] No previous ECG available for comparison Electronically Signed On 01-19-2025 22:56:57 FINANCIAL REPORTING DIRECTOR by Olivia Gil M.D.
[2025-01-19 20:46] LABS: Hematocrit 39.8 % (42.0-52.0); Hemoglobin 14.2 g/dL (14.0-18.0); Immature Granulocyte Percent A 0.2 % (0-0.5); Lymphocytes Absolute Auto 1.68 K/mm3 (0.9-3.2); Mean Corpuscular HGB Conc 35.7 g/dl (32-36); Mean Corpuscular Hemoglobin 29.6 pg (26-34); Mean Corpuscular Volume 83.1 fl (80-100); Nucleated Red Blood Cells Absolute Auto 0.000 K/mm3 (0.0-0.012); Nucleated Red Blood Cells Perc 0.0 % (0.0-0.2); Platelet Count Result 321 k/mm3 (150-375); Red Blood Count 4.79 M/mm3 (4.6-6.20); White Blood Count 6.1 K/mm3 (4.5-10.0)
[2025-01-19 20:57] LABS: INR 1.2; Prothrombin Time 14.9 Seconds (11.1-14.7)
[2025-01-19 20:58] LABS: Alanine Aminotransferase 23 U/L (6-50); Albumin Level 5.3 g/dL (3.5-5.1); Alkaline Phosphatase 44 U/L (38-126); Anion Gap 16 mmol/L (4-12); Aspartate Amino Transferase 28 U/L (17-59); Bilirubin,Total 1.3 mg/dL (0.2-1.3); Blood Urea Nitrogen 8 mg/dL (9-20); Calcium 10.2 mg/dL (8.4-10.2); Carbon Dioxide 17 mmol/L (22-30); Chloride 105 mmol/L (98-107); Estimated CRCL calculation 107 ml/min; Estimated Glomerular Filt Rate > 60; Glucose 95 mg/dL (65-110); Lipase 148 U/L (23-300); Partial Thromboplastin Time 27.5 Seconds (22.3-36.8); Potassium 3.9 mmol/L (3.4-5.0); Sodium 138 mmol/L (137-145); Total Protein 9.1 g/dL (6.3-8.2)
[2025-01-19 21:08] LABS: Troponin I < 0.012 ng/mL (0.000-0.034)
--- NOTE | 2025-01-19 21:20 | ED.ANXIETY ---
HPI - Anxiety General Chief Complaint: Anxiety Stated Complaint: anxiety Time Seen by Provider: 01/19/25 20:24 History of Present Illness HPI narrative: 24-year-old otherwise healthy male presenting to the emergency department for 3rd evaluation in the emergency department in the last 2 days. Patient was here yesterday for suspected anxiety and was discharged home without workup. He went to another hospital prior to arrival today and had blood work EKG and chest x-ray and was told that he might just be anxious. He was discharged from there and drove himself to this ER. Patient states he was having whole body numbness and tingling in sensations even the face. He was having deep breathing and rapid breathing. No pain anywhere. No chest pain or shortness of breath. States he is a nonchalant person and not anxious however patient appears visibly anxious and having deep breathing. has not tried any medications for his symptoms. Does not see a primary doctor. Has no health concerns previously. No nausea, vomiting, chest pain, back pain, fever, chills. No cough. He states he previously had pneumonia and wants to make sure does not have a pneumonia in his left lung. Related Data Allergies Allergy/AdvReac Type Severity Reaction Status Date / Time No Known Allergies Allergy Verified 01/19/25 19:44 Review of Systems Review of Systems: as reviewed above in [facility] Social History Social History Substance use type: does not use Exam Narrative: GENERAL: anxious appearing but not any acute distress. Awake and answering all my questions appropriately. HEAD: [Normocephalic, atraumatic.] EYES: [PERRLA and EOMI.] ENT: Nares clear, no rhinorrhea or epistaxis. Mucous membranes moist. NECK: Supple. CHEST: [Clear to auscultation. No respiratory distress.] HEART: [Regular rate and rhythm]. No murmur heard. [Normal peripheral pulses.] ABDOMEN: [Soft, nondistended], [nontender], [No rigidity or guarding] EXTREMITIES: Normal range of motion. [No edema.] SKIN: Warm, dry, no rash. NEURO: [No focal deficits]. Alert and oriented [x3.] PSYCH: Anxious appearing mood and affect. No SI/HI. Course Vital Signs Vital signs: Vital Signs Temperature 36.3 C L 01/19/25 19:46 Pulse Rate 92 01/19/25 19:46 Respiratory Rate 20 01/19/25 19:46 Blood Pressure 149/76 H 01/19/25 19:46 Pulse Oximetry 100 01/19/25 19:46 Temperature 36.7 C 01/19/25 22:58 Pulse Rate 97 01/19/25 22:58 Respiratory Rate 20 01/19/25 22:58 Blood Pressure 131/77 01/19/25 22:58 Pulse Oximetry 100 01/19/25 22:58 MDM - Anxiety MDM Narrative Medical decision making narrative: 24-year-old otherwise healthy male presenting to the emergency department for 3rd evaluation in the emergency department in the last 2 days. Patient was here yesterday for suspected anxiety and was discharged home without workup. He went to another hospital prior to arrival today and had blood work EKG and chest x-ray and was told that he might just be anxious. He was discharged from there and drove himself to this ER. Patient states he was having whole body numbness and tingling in sensations even the face. He was having deep breathing and rapid breathing. No pain anywhere. No chest pain or shortness of breath. States he is a nonchalant person and not anxious however patient appears visibly anxious and having deep breathing. has not tried any medications for his symptoms. Does not see a primary doctor. Has no health concerns previously. No nausea, vomiting, chest pain, back pain, fever, chills. No cough. He states he previously had pneumonia and wants to make sure does not have a pneumonia in his left lung. Patient is hemodynamically stable without any tachycardia, fever, hypoxemia. He does appear visibly anxious throughout the encounter in examination. When asked if he would like to try any medications to see if it would come down his sensations of paresthesias globally or is heavy breathing he agreed to trial of some medications so I ordered him Valium and Atarax to see if that helped. Laboratory studies including a cardiac workup ordered this time for complete evaluation to make sure we do not have any organic causes to her symptoms. Chest x-ray EKG troponin and a TSH also ordered. Laboratory studies are all normal and consistent with hyperventilation. Chest x-ray and EKG are normal. No signs of any cardiac disease and workup unrevealing. Patient is very anxious and took a long time convincing to even try the medications that we provided him and he refused the Atarax but was amenable to Valium. Ambulatory without any difficulty and given his unremarkable workup will be safe for discharge with regular PCP follow-up. One was referred for him as he does not have a PCP at this time. Hydroxyzine prescribed as needed. Medical Records Attestation: I reviewed the patient's medical records. Lab Data Attestation: I reviewed the patient's lab results. 01/19/25 20:39 01/19/25 20:39 Labs: Lab Results 01/19/25 Range/Units 20:39 WBC 6.1 (4.5-10.0) K/mm3 RBC 4.79 (4.6-6.20) M/mm3 Hgb 14.2 (14.0-18.0) g/dL Hct 39.8 L (42.0-52.0) % MCV 83.1 (80-100) fl MCH 29.6 (26-34) pg MCHC 35.7 (32-36) g/dl RDW 12.3 (11.5-14.5) % Plt Count 321 (150-375) k/mm3 MPV 9.6 (7.4-10.4) fl Immature Gran % (Auto) 0.2 (0-0.5) % Neut % (Auto) 64.3 (45.5-73.1) % Lymph % (Auto) 27.4 (18.3-44.2) % Walsh % (Auto) 6.8 (2.6-8.5) % Eos % (Auto) 0.3 (0-4.4) % Baso % (Auto) 1.0 (0.2-1.2) % Lymph # (Auto) 1.68 (0.9-3.2) K/mm3 Walsh # (Auto) 0.4 (0.1-0.6) K/mm3 Eos # (Auto) 0.0 (0-0.3) K/mm3 Baso # (Auto) 0.1 (0.0-0.1) K/mm3 Abs Immat Gran (auto) 0.01 (0.00-0.031) K/mm3 Absolute Neuts (auto) 4.0 (1.3-6.7) K/mm3 Absolute Nucleated RBC 0.000 (0.0-0.012) K/mm3 Nucleated RBC % 0.0 (0.0-0.2) % PT 14.9 H (11.1-14.7) Seconds INR 1.2 APTT 27.5 (22.3-36.8) Seconds Sodium 138 (137-145) mmol/L Potassium 3.9 (3.4-5.0) mmol/L Chloride 105 (98-107) mmol/L Carbon Dioxide 17 L (22-30) mmol/L Anion Gap 16 H (4-12) mmol/L BUN 8 L (9-20) mg/dL Creatinine 1.02 (0.7-1.3) mg/dL Estim Creat Clear Calc 107 ml/min Estimated GFR > 60 (59 - ) Glucose 95 (65-110) mg/dL Calcium 10.2 (8.4-10.2) mg/dL Total Bilirubin 1.3 (0.2-1.3) mg/dL AST 28 (17-59) U/L ALT 23 (6-50) U/L Alkaline Phosphatase 44 (38-126) U/L Troponin I < 0.012 (0.000-0.034) ng/mL Total Protein 9.1 H (6.3-8.2) g/dL Albumin 5.3 H (3.5-5.1) g/dL Lipase 148 (23-300) U/L TSH (Reflex) 1.190 (0.465-4.68) uIU/mL Imaging Data Attestation: I personally reviewed and interpreted this imaging study as follows: My impression: normal chest Discharge Plan Discharge Clinical Impression: Acute anxiety, Hyperventilation Patient Disposition: Home Condition: Stable Instructions: Antibiotic Form, Anxiety (ED) Additional Instructions: All of your laboratory studies are unremarkable. No signs of any cardiac disease, thyroid disease, organ dysfunction, pneumonia, or dysrhythmia. Symptoms consistent with anxiety. We have given you a primary care provider to follow-up with as well as a prescription for Atarax that can help anxiety as needed. Return with any worsening or emergent concerns at any time. Patient Language: Swedish Prescriptions: New hydroxyzine HCl 10 mg tablet 10 mg PO TID PRN (Reason: anxiety) Qty: 30 0RF Follow-up/Referrals: Alex Pillai MD [Physician, Family Practice] - 1 Week Referral Note: PCP PHYSICIAN,COURT BAILIFF OR SHERIFF [Primary Care Provider, Internal Medicine] Time of Disposition: 22:20
[2025-01-19 21:26] LABS: Thyroid Stimulating Hormone Reflex 1.190 uIU/mL (0.465-4.68)
[2025-01-19] MEDS: diazePAM INJ (*CRX) 10 MG/2 ML SYRINGE 2.5 MG IV PUSH (21:45)
[2025-01-19 22:58] VITALS: BP 131/77; PULSE 97; RESP 20; TEMP 36.7; O2SAT 100
--- NOTE | 2025-01-19 23:32 | PC.NURSE ---
7125-THIS RN SPENT 30 MINUTE DISCUSSING WITH PATIENT HYPERVENTILATION AND ANXIETY SYMPTOMS. PATIENT STATES WAS AT [facility] EARLI[facility] TODAY AND PRESCRIBED STEROIDS AND ALBUTEROL INHALER FOR BRONCHITIS. SPOKE WITH ERP WHO ADVISED PATIENT NOT START PRESCRIBED MEDICATIONS FROM [facility] ER.
== END 2025-01-19 23:30 | disposition home or self-care (01) ==
PROVIDERS: Emergency Provider Student in an Organized Health Care Education/Training Program
DX: F41.9 Anxiety disorder, unspecified (principal); R06.4 Hyperventilation; Z87.01 Personal history of pneumonia (recurrent); R94.31 Abnormal electrocardiogram [ECG] [EKG]
CPT/HCPCS: 36415; 71045; 80053; 83690; 84443; 84484; 85025; 85610; 85730; 93005; 96374; 99284; J3360